=== PATIENT | female | born 1980 | race Caucasian/White ===

== ENCOUNTER 2019-02-20 21:44 | Emergency (ER) | payer BC ==
[~2019-02-20] VITALS: Ht 160 cm; Wt 94.8 kg
[~2019-02-20 21:44] MED LIST: ATIVAN1 MG PO; NOHOMEMEDICATIONS
[2019-02-20 21:45] VITALS: BP 155/109
[2019-02-20] MEDS ORDERED: CHOLESTYRAMI239.4 GM PO (21:57)
[2019-02-20] MEDS ORDERED: ONDANSETRON HCL4 M3 PO (21:58)
[2019-02-20] MEDS ORDERED: BENTYL 20 MG TA20 M1 PO (21:58)
[2019-02-20] MEDS ORDERED: PERCOCET 5-3251 EACH PO (21:58)
[2019-02-20] MEDS ORDERED: CYCLOBENZAPRINE5 MG PO (21:59)
[2019-02-20] MEDS ORDERED: NEURONTIN 300300 M1 PO (21:59)
[2019-02-20] MEDS ORDERED: TIZANIDINE HCL 22 M1 PO (21:59)
[2019-02-20] MEDS ORDERED: LEVOTHYROXINE88 MCG PO (22:00)
[2019-02-20] MEDS ORDERED: DULOXETINE HCL20 MG PO (22:00)
[2019-02-20] MEDS ORDERED: OMEPRAZOLE40 MG PO (22:01)
[2019-02-20] MEDS ORDERED: AMITRIPTYLINE H10 M1 PO (22:02)
[2019-02-20 22:42] LABS: ABSOLUTE NEUTROPHILS 6.6 thou/uL (1.4-8.2); BASOPHILS 0.5 % (0.0-2.0); EOSINOPHILS 1.7 % (0.0-3.0); HEMATOCRIT 32.4 % (37.0-47.0); HEMOGLOBIN 10.3 gm/dL (12.0-15.0); LYMPHOCYTES 23.3 % (24.0-44.0); MCH 27.7 pg (26.0-34.0); MCHC 31.9 g/dL (28.0-37.0); MCV 86.9 fL (80.0-100.0); MONOCYTES 7.9 % (1.0-8.0); PLATELET COUNT 336 thou/uL (150-400); POLYS 66.6 % (36.0-66.0); RBC 3.73 mil/uL (4.20-5.00); RDW 15.5 % (10.5-14.5); WBC 9.9 thou/uL (4.0-11.0)
[2019-02-20 22:48] LABS: CALCIUM 8.6 mg/dL (8.5-10.1); CREATININE 0.8 mg/dL (0.6-1.0); POTASSIUM 4.1 mmol/L (3.5-5.1)
[2019-02-20 22:55] LABS: ALBUMIN 3.1 g/dL (3.4-5.0); TOTAL BILIRUBIN 0.3 mg/dL (<0.1-1.0); TOTAL PROTEIN 7.6 g/dL (6.4-8.2)
[2019-02-20 23:05] LABS: URINE BILIRUBIN NEGATIVE (Negative); URINE BLOOD NEGATIVE (Negative); URINE CLARITY CLEAR; URINE COLOR YELLOW; URINE GLUCOSE-RANDOM* NEGATIVE (Negative); URINE KETONES NEGATIVE (Negative); URINE LEUKOCYTES-REFLEX TRACE (Negative); URINE NITRITE-REFLEX NEGATIVE (Negative); URINE PROTEIN (DIPSTICK) NEGATIVE (Negative); URINE UROBILINOGEN 0.2 E.U./dl (0.2-1.0)
[2019-02-21 02:10] VITALS: BP 126/85
[2019-02-21 04:20] VITALS: BP 128/105
--- NOTE | 2019-02-21 09:22 | EKG ---
[address] [address] ELECTROCARDIOGRAM REPORT Name: CALEB MORRISON Room #: [facility]#: [id number] Admission: 02/20/19 Attend Phys: Discharge: 02/21/19 Date of : 76 Report #: [id number] THIS REPORT FOR: //name// [facility] ED Test Date: 2019-02-20 Test Time: 22:16:07 Pat Name: CALEB MORRISON Department: Room: Gender: F Furniture Sales Associate: RAFA : 1980 Requested By: Stephen Ramirez Order Number: [id number] MD: Ki Calderon Measurements Intervals [place] Rate: 107 P: 58 MI: 132 QRS: 41 QRSD: 86 T: 35 QT: 329 QTc: 439 Interpretive Statements Sinus tachycardia Otherwise no significant abnormality Compared to ECG 11/09/2011 05:40:50 Heart rate has increased Electronically Signed On 02-21-2019 9:22:14 HUMAN RESOURCE ADVISOR by Ki Calderon [email or web address] <ELECTRONICALLY SIGNED> By: Ki Cadleron MD, [facility] 02/21/19 0922 2216 15 Ki Calderon MD, FACC /EPI
== END 2019-02-21 04:21 | disposition short-term general hospital (02) ==
LOC: ER 21:44 → EROBS 02-21 01:58 → ER 02-21 01:58 → EROBS 02-21 01:58 → ER 02-21 04:21
PROVIDERS: Emergency Medicine
DX: K56.7 Ileus, unspecified (principal); R19.7 Diarrhea, unspecified; Z88.8 Allergy status to other drugs, medicaments and biological substances; Z90.49 Acquired absence of other specified parts of digestive tract